=== PATIENT | male | born 1930 | race Caucasian/White ===

== ENCOUNTER 2016-05-05 09:13 | Observation (INO) | payer MEDICARE, OTHER ==
[2016-05-05 10:19] LABS: BASOPHIL % 0.3 % (0.0-0.4); Eosinophil % 1.3 % (0.00-5.0); Granulocytes % 66.9 % (36.0-66.0); Lymphocytes % 23.4 % (24.0-44.0); Mean Cell Volume 99.8 fl (78-100); Mean Corpuscular Hemoglobin 32.5 pg (26-32); Mean Platelet Volume 9.7 fl (6-9.5); Monocytes % 8.1 % (0.0-12.0); Platelet Count 179 K/mm3 (150-450); Red Blood Count 4.55 M/mm3 (4.1-5.6); Red Cell Distribution Width 13.4 % (11.5-14.0); White Blood Count 9.2 K/mm3 (4.0-10.5)
[2016-05-05 10:33] LABS: INR 1.08 (0.8-3.0); PROTIME 12.1 SECONDS (8.83-12.87)
[2016-05-05 10:36] LABS: PTT 30.2 SECONDS (24.1-36.1)
[2016-05-05 10:41] LABS: ALBUMIN 3.8 g/dL (3.4-5.0); ANION GAP 14.1 MEQ/L (5-15); BILIRUBIN,TOTAL 0.6 mg/dL (0.2-1.0); Carbon Dioxide 26.7 mEq/L (21-32); Potassium 4.1 mEq/L (3.5-5.1); Total Protein 7.5 gm/dL (6.4-8.2)
[2016-05-05] MEDS ORDERED: TYLENOL 325 MG PO PRN (12:23)
[2016-05-05] MEDS ORDERED: Zofran 4 MG/2 ML VIAL IV PRN (12:25)
[2016-05-05] MEDS ORDERED: Sodium Chloride 0.9% 500 ML 500 ML IV SCH ×2 (12:30→14:30)
[2016-05-05] MEDS ORDERED: MORPHINE SULFATE 2 MG INJ IV PRN (12:37)
--- NOTE | 2016-05-05 12:47 | HP ---
HISTORY OF PRESENT ILLNESS: This is an 85 year-old man who presented to see a nurse practitioner Katerine Toribio this morning and her nurse practitioner student. He reports he used to see Dr. Cristy Armendariz but there was no record here for over 10 years with him being seen. He stated that last night around 1700 hours he started having bright red blood from his rectum. He said it started after he went outside having some posts delivered to his house. He felt like he had pass gas and then felt like he had a bowel movement in his pants but it was actually the bright red blood. He has no history of this happening before. It happened several times after this. He denies any rectal pain. No itching or burning. No history of hemorrhoids. He has never had a colonoscopy or any scan for colon cancer. His father of colon cancer when he was 70. The patient reported that he felt a little shaky in the clinic and the nurse practitioner said when she tried to get him up on the table he seemed unsteady. In the clinic when I did a rectal exam, he had bright red blood on the glove, no stool. His prostate felt enlarged. No large rectal masses. I did not palpate any internal hemorrhoids. I did not see any external hemorrhoids. The patient was admitted for further evaluation and treatment. REVIEW OF SYSTEMS: He has had no dysuria, no cough, and no rhinorrhea. He has had history of ear infection. Denies headache. He has had no lower extremity edema. No rashes. No shortness of breath. No chest pain. No abdominal pain. No fevers. He notes that he had a bulging in his right groin area where previous hernia was. PAST MEDICAL HISTORY: None. PAST SURGICAL HISTORY: Hernia on right side eight years ago that he thinks Dr. Smith did. MEDICATIONS: He only takes some vitamin supplements. Please see the medication reconciliation list for those. ALLERGIES: NKDA. SOCIAL HISTORY: He is and lives with his . He denies any tobacco or alcohol use. FAMILY HISTORY: His mother around 71 from a stroke. His father at age 70 from colon cancer. PHYSICAL EXAMINATION: VITAL SIGNS: Temperature current 97.4F, temperature max 97.4F, heart rate 80, respiratory rate 18, blood pressure 149/79. Oxygen saturation 94% on room air. GENERAL: The patient is a pleasant talkative man lying in bed in no acute distress. CVS: He has a regular rate and rhythm. No murmurs, gallops or rubs. CHEST: Clear to auscultation bilaterally. No crackles or wheezes. ABDOMEN: Soft, nontender, nondistended with normal bowel sounds. EXTREMITIES: No clubbing, cyanosis or edema. SKIN: Warm, dry and intact. RECTAL: Exam which was done in the office with the nurse practitioner student present revealed an enlarged prostate, no distinct nodules, no rectal masses palpated. Normal sphincter tone. Bright red blood on the glove. No internal hemorrhoids palpated. No external hemorrhoids visualized. LABORATORY DATA AND TESTS: His CBC revealed a white blood cell count 9.2, hemoglobin 14.8, PLT 179,000. International normalized ratio 1.09. CMP all within normal limits. ASSESSMENT AND PLAN: 1) Hematochezia. The patient is currently NPO. IV fluids have been ordered. Will recheck his hemoglobin in six hours and ask the general surgeon to see him for consideration of a scope before he is discharged home. 2) Right lower abdominal pain this is almost in the inguinal area. Again, the surgeon will be seeing him to see if they think this is a hernia that has reoccurred or not.
[2016-05-05] MEDS: Dextrose 5% -0.45 NaCl 1000 ML 1,000 ML IV SCH (13:47)
[2016-05-05] MEDS: Calcium 500MG W/Vit D Tablet PO SCH (16:43)
[2016-05-05] MEDS: Vitamin C 500 MG PO SCH (16:44)
[2016-05-05] MEDS: VITAMIN D PO SCH (16:44)
[2016-05-05] MEDS: Vitamin B-12 500 MCG PO SCH (16:44)
[2016-05-05] MEDS: Vitamin E 400 UNIT SOFTGEL PO SCH (16:44)
[2016-05-05] MEDS: THERAGRAN MULTIVITAMIN PO SCH (16:44)
[2016-05-05] MEDS ORDERED: Golytely Solution 4000 ML PO ONE (18:45)
[2016-05-06] MEDS: Dextrose 5% -0.45 NaCl 1000 ML 1,000 ML IV SCH (00:05)
[2016-05-06 05:53] LABS: BASOPHIL % 0.6 % (0.0-0.4); Eosinophil % 4.3 % (0.00-5.0); Granulocytes % 46.2 % (36.0-66.0); Lymphocytes % 36.9 % (24.0-44.0); Mean Cell Volume 100.9 fl (78-100); Mean Platelet Volume 10.1 fl (6-9.5); Platelet Count 159 K/mm3 (150-450); Red Cell Distribution Width 13.2 % (11.5-14.0); White Blood Count 5.4 K/mm3 (4.0-10.5)
[2016-05-06 05:56] LABS: Mean Corpuscular Hemoglobin 32.2 pg (26-32)
[2016-05-06 06:06] LABS: ANION GAP 12.6 MEQ/L (5-15); BLOOD UREA NITROGEN 15 mg/dL (9-20); CHLORIDE 108 mEq/L (98-107); Carbon Dioxide 26.2 mEq/L (21-32); Glucose 102 MG/DL (70-110); Potassium 3.6 mEq/L (3.5-5.1); SODIUM 143 mEq/L (136-145)
[2016-05-06] MEDS ORDERED: DEMEROL 50 MG SDV IV ONE (08:00)
--- NOTE | 2016-05-06 08:22 | PCM.NOTE ---
Date and Time: 05/06/16816 Subjective Assessment: Patient denies any problems. He has been prepped for a colonoscopy today. He states his right lower abdominal pain has resolved. - Review of Systems Constitutional: No Symptoms Eyes: No Symptoms Ears, Nose, & Throat: No Symptoms Respiratory: No Symptoms Cardiac: No Symptoms Abdominal/Gastrointestinal: Hematochezia Genitourinary Symptoms: No Symptoms Musculoskeletal: No Symptoms Skin: No Symptoms Neurological: No Symptoms Objective Exam General Appearance: no apparent distress, alert Neurologic Exam: alert, cooperative, normal mood/affect Skin Exam: normal color, warm, dry, No rash Respiratory Exam: normal breath sounds, lungs clear, airway intact, No crackles/ rales, No rhonchi, No wheezing Cardiovascular Exam: regular rate/rhythm, normal heart sounds, No murmur, No friction rub, No gallop Gastrointestinal/Abdomen Exam: soft, normal bowel sounds, No tenderness, No distention, No mass Extremity Exam: other (no c/c/e) OBJECTIVE DATA Vital Signs: Vital Signs - 24 hr Temp Pulse Resp BP Pulse Ox 05/06/16 07:00 97.6 F 79 16 114/55 91 L 05/06/16 03:00 97.5 F 91 H 18 119/64 96 05/05/16 23:50 97.9 F 84 16 133/69 94 L 05/05/16 19:46 97.5 F 73 18 118/65 94 L 05/05/16 16:42 97.8 F 74 20 111/64 95 05/05/16 12:47 97.4 F 80 18 149/79 94 L 05/05/16 10:03 97.4 F 80 18 149/79 94 L 05/05/16 09:58 97.4 F 80 18 149/79 94 L Pain Assessment - Last Documented Pain Intensity 4 Pain Scale Used 0-10 Pain Scale Intake and Output: Intake & Output 05/04/16 05/05/16 05/06/16 05/07/16 06:59 06:59 06:59 06:59 Intake Total 4885 Output Total 6725 Balance -1840 Weight 77.02 kg 77.02 kg Lab Results: Lab Results-Last 24 Hours 05/05/16 05/05/16 05/05/16 Range/Units 10:00 10:00 10:00 WBC (4.0-10.5) K/mm3 RBC (4.1-5.6) M/mm3 Hgb (12.5-18.0) gm/dl Hct (42-50) % MCV (78-100) fl MCH (26-32) pg MCHC (32-36) g/dl RDW (11.5-14.0) % Plt Count (150-450) K/mm3 MPV (6-9.5) fl Gran % (36.0-66.0) % Lymphocytes % (24.0-44.0) % Monocytes % (0.0-12.0) % Eosinophils % (0.00-5.0) % Basophils % (0.0-0.4) % Basophils # (0-0.4) INR 1.08 (0.8-3.0) PTT 30.2 (24.1-36.1) SECONDS Sodium 141 (136-145) mEq/L Potassium 4.1 (3.5-5.1) mEq/L Chloride 104 (98-107) mEq/L Carbon Dioxide 26.7 (21-32) mEq/L Anion Gap 14.1 (5-15) MEQ/L BUN 20 (9-20) mg/dL Creatinine 1.26 (0.55-1.30) mg/dl Estimated GFR 58 ML/MIN Glucose 102 (70-110) MG/DL Calcium 9.1 (8.5-10.1) mg/dL Total Bilirubin 0.6 (0.2-1.0) mg/dL AST 22 (15-37) U/L ALT 19 (12-78) U/L Alkaline Phosphatase 47 (46-116) U/L Serum Total Protein 7.5 (6.4-8.2) gm/dL Albumin 3.8 (3.4-5.0) g/dL ABO Group A Rh Factor POSITIVE Antibody Screen NEGATIVE (NEGATIVE) Crossmatch COMPATIBLE (COMPATIBLE) 05/05/16 05/05/16 05/05/16 Range/Units 10:00 10:15 16:20 WBC 9.2 (4.0-10.5) K/mm3 RBC 4.55 (4.1-5.6) M/mm3 Hgb 14.8 12.2 L (12.5-18.0) gm/dl Hct 45.4 38.1 L (42-50) % MCV 99.8 (78-100) fl MCH 32.5 H (26-32) pg MCHC 32.6 (32-36) g/dl RDW 13.4 (11.5-14.0) % Plt Count 179 (150-450) K/mm3 MPV 9.7 H (6-9.5) fl Gran % 66.9 H (36.0-66.0) % Lymphocytes % 23.4 L (24.0-44.0) % Monocytes % 8.1 (0.0-12.0) % Eosinophils % 1.3 (0.00-5.0) % Basophils % 0.3 (0.0-0.4) % Basophils # 0.03 (0-0.4) INR (0.8-3.0) PTT (24.1-36.1) SECONDS Sodium (136-145) mEq/L Potassium (3.5-5.1) mEq/L Chloride (98-107) mEq/L Carbon Dioxide (21-32) mEq/L Anion Gap (5-15) MEQ/L BUN (9-20) mg/dL Creatinine (0.55-1.30) mg/dl Estimated GFR ML/MIN Glucose (70-110) MG/DL Calcium (8.5-10.1) mg/dL Total Bilirubin (0.2-1.0) mg/dL AST (15-37) U/L ALT (12-78) U/L Alkaline Phosphatase (46-116) U/L Serum Total Protein (6.4-8.2) gm/dL Albumin (3.4-5.0) g/dL ABO Group Rh Factor Antibody Screen (NEGATIVE) Crossmatch COMPATIBLE (COMPATIBLE) 05/06/16 05/06/16 Range/Units 05:25 05:25 WBC 5.4 (4.0-10.5) K/mm3 RBC 3.50 L (4.1-5.6) M/mm3 Hgb 11.3 L (12.5-18.0) gm/dl Hct 35.3 L (42-50) % MCV 100.9 H (78-100) fl MCH 32.2 H (26-32) pg MCHC 32.0 (32-36) g/dl RDW 13.2 (11.5-14.0) % Plt Count 159 (150-450) K/mm3 MPV 10.1 H (6-9.5) fl Gran % 46.2 (36.0-66.0) % Lymphocytes % 36.9 (24.0-44.0) % Monocytes % 12.0 (0.0-12.0) % Eosinophils % 4.3 (0.00-5.0) % Basophils % 0.6 (0.0-0.4) % Basophils # 0.03 (0-0.4) INR (0.8-3.0) PTT (24.1-36.1) SECONDS Sodium 143 (136-145) mEq/L Potassium 3.6 (3.5-5.1) mEq/L Chloride 108 H (98-107) mEq/L Carbon Dioxide 26.2 (21-32) mEq/L Anion Gap 12.6 (5-15) MEQ/L BUN 15 (9-20) mg/dL Creatinine 1.10 (0.55-1.30) mg/dl Estimated GFR > 60 ML/MIN Glucose 102 (70-110) MG/DL Calcium 7.8 L (8.5-10.1) mg/dL Total Bilirubin (0.2-1.0) mg/dL AST (15-37) U/L ALT (12-78) U/L Alkaline Phosphatase (46-116) U/L Serum Total Protein (6.4-8.2) gm/dL Albumin (3.4-5.0) g/dL ABO Group Rh Factor Antibody Screen (NEGATIVE) Crossmatch (COMPATIBLE) Assessment/Plan (1) Hematochezia Current Visit: Yes Status: Acute Assessment & Plan: Colonoscopy planned for today. Hgb has dropped by about 3 points but he started out with a hemoglobin of 14 so no need to transfuse at this time as his vital signs are stable. Continue with IV fluids and close monitoring. Will recheck a CBC in the am. Code(s): K92.1 - MELENA
[2016-05-06] MEDS ORDERED: NON-FORMULARY ITEM (Ascorbate Calcium [Vitamin C] 500 MG) PO SCH (10:00)
[2016-05-06] MEDS ORDERED: NON-FORMULARY ITEM (Multivitamin W-Minerals/Lutein [Centrum Silver Tablet] 1 EACH) PO SCH (10:00)
[2016-05-06] MEDS ORDERED: [UNRECOGNIZED DRUG - REMARK] PO SCH (10:00)
[2016-05-06] MEDS ORDERED: NON-FORMULARY ITEM (Calcium Carbonate [Calcium] 600 MG) PO SCH (10:00)
[2016-05-06] MEDS ORDERED: CHOLECALCIFEROL 800 UNIT PO SCH (10:00)
[2016-05-06] MEDS: Calcium 500MG W/Vit D Tablet PO SCH (11:44)
[2016-05-06] MEDS: MEDICATION INTERVENTION MC SCH (11:44)
[2016-05-06] MEDS: THERAGRAN MULTIVITAMIN PO SCH (11:44)
[2016-05-06] MEDS: Vitamin B-12 500 MCG PO SCH (11:45)
[2016-05-06] MEDS: VITAMIN D PO SCH (11:45)
[2016-05-06] MEDS: Vitamin C 500 MG PO SCH (11:45)
[2016-05-06] MEDS: Vitamin E 400 UNIT SOFTGEL PO SCH (11:46)
[2016-05-06] MEDS: Sodium Chloride 0.9% 1000 ML 1,000 ML IV SCH ×2 (11:50→18:46)
[2016-05-07] MEDS: Sodium Chloride 0.9% 1000 ML 1,000 ML IV SCH (05:00)
[2016-05-07 05:41] LABS: BASOPHIL % 0.3 % (0.0-0.4); Granulocytes % 58.4 % (36.0-66.0); Lymphocytes % 28.5 % (24.0-44.0); Mean Cell Volume 100.9 fl (78-100); Mean Corpuscular Hemoglobin 32.2 pg (26-32); Mean Platelet Volume 9.7 fl (6-9.5); Monocytes % 8.8 % (0.0-12.0); Platelet Count 157 K/mm3 (150-450); Red Blood Count 3.32 M/mm3 (4.1-5.6); Red Cell Distribution Width 13.3 % (11.5-14.0)
[2016-05-07 06:01] LABS: ANION GAP 10.4 MEQ/L (5-15); BLOOD UREA NITROGEN 12 mg/dL (9-20); CHLORIDE 109 mEq/L (98-107); Carbon Dioxide 26.1 mEq/L (21-32); Glucose 83 MG/DL (70-110); Potassium 3.8 mEq/L (3.5-5.1); SODIUM 142 mEq/L (136-145)
[2016-05-07 07:41] VITALS: BP 132/62; PULSE 84; O2SAT 94
[2016-05-07] MEDS ORDERED: VERSED 5 MG/5 ML IV ONE (08:00)
--- NOTE | 2016-05-07 08:18 | OP ---
SURGERY DATE: 05/06/16 SURGERY TIME: 1240 PREOPERATIVE DIAGNOSIS: 1. RECTAL BLEEDING. POSTOPERATIVE DIAGNOSIS: 1. RECENT RECTOSIGMOID BLEEDING LIMITED TO THE DISTAL SIGMOID DIVERTICULAR AREA. PROCEDURE: 1. Colonoscopy complete to cecum. FINDINGS: 1. Blood only in the distal sigmoid and upper rectum. 2. Moderate to severe sigmoid diverticulosis. SURGEON: Gallo Smith M.D. ANESTHESIA: IV sedation. COMPLICATIONS: None. CONDITION: Stable. INDICATION: Patient requiring evaluation. Had rectal bleeding. OPERATIVE PROCEDURE: Taken to endoscopy. Left lateral decubitus position. After suitable sedation obtained, scope introduced. Scope advanced to the cecum. On circumferential withdrawal, no mucosal lesions were noted. There was moderate to severe diverticulosis of the sigmoid and in the distal 6", there was old blood and blood staining on the wall and there was a little bit of this in the very upper rectum. It certainly seems like this was a diverticular bleed and this was discussed with the family in the waiting room.
[2016-05-07] MEDS: THERAGRAN MULTIVITAMIN PO SCH (08:31)
[2016-05-07] MEDS: VITAMIN D PO SCH (08:31)
[2016-05-07] MEDS: Calcium 500MG W/Vit D Tablet PO SCH (08:31)
--- NOTE | 2016-05-07 08:31 | PCM.DCORD ---
- Discharge Discharge Date: 05/07/16 Disposition: Home, Self-Care Condition: Fair Prescriptions: New Ferrous Sulfate 325 mg [Feosol 325 mg] 325 mg PO DAILY #30 tablet Continue Vitamin E 400 unit PO DAILY Cyanocobalamin 500 Mcg [Vitamin B-12 500 MCG] 500 mcg PO DAILY Ascorbate Calcium [Vitamin C] 500 mg PO DAILY Multivitamin W-Minerals/Lutein [Centrum Silver Tablet] 1 each PO DAILY Glucosam/Chond/Hyalu/Cf Borate [Move Free Joint Health Tablet] 1 each PO DAILY Calcium Carbonate [Calcium] 600 mg PO DAILY Cholecalciferol (Vitamin D3) [Vitamin D3] 800 unit PO DAILY Additional Instructions: Avoid eating nuts or fruits with small seeds. Call clinic or return to ER if bleeding starts again. Follow up with: LAURA SANABRIA [Primary Care Provider] - [address]QUE [address]REETER [ACTIVE STAFF] - 1 Week Forms: Patient Portal Information
[2016-05-07] MEDS: Vitamin B-12 500 MCG PO SCH (08:32)
[2016-05-07] MEDS: Vitamin C 500 MG PO SCH (08:32)
[2016-05-07] MEDS: MEDICATION INTERVENTION MC SCH (08:35)
[2016-05-07] MEDS: Vitamin E 400 UNIT SOFTGEL PO SCH (08:40)
--- NOTE | 2016-05-07 12:05 | DS ---
DISCHARGE DIAGNOSIS: 1. HEMATOCHEZIA. 2. SEVERE DIVERTICULOSIS WITH SEVERE RECENT RECTAL BLEEDING. 3. ANEMIA. DISCHARGE PHYSICAL EXAM: VITALS: Temperature current 97.8, temperature maximum 97.8, heart rate 54-85, respiratory rate 16-17, O2 saturation 92-94% on room air, BP 121-132/60-62. GENERAL: The patient is a pleasant, talkative man sitting up in bed in no acute distress. His is at the bedside. CVS: His heart has a regular rate and rhythm. No murmurs, gallops, or rubs are appreciated. CHEST: Clear to auscultation bilaterally. No crackles or wheezes. ABDOMEN: Soft, nontender, nondistended with normal bowel sounds. EXTREMITIES: No clubbing, cyanosis, or edema. SKIN: Warm, dry, and intact. HOSPITAL COURSE: 1. Hematochezia. He was admitted to the hospital with significant bright red blood from his rectum. He was prepped for a colonoscopy which was done yesterday by Dr. Smith. According to the post-op diagnosis on his endoscopy procedure report, it states there is severe diverticulosis with severe recent bleeding. The actual procedure note has not been dictated yet. The patient reports that the bleeding has completely stopped. He was instructed to avoid nuts and small seeds or anything that could be small and heard that could get in those pockets to cause inflammation or irritation. The patient hasn't had any fevers. He has had 3 meals without any problems. No nausea or vomiting, so will discharge him to home to follow-up with myself and the surgeon. 2. Severe sigmoid diverticulosis with severe rectal bleeding. The plan is as above for the hematochezia. 3. Anemia. His Hgb dropped from 14.8 to 10.7 during his hospitalization. I am going to check some iron studies and vitamin B12 levels to be drawn before he leaves and start him on ferrous sulfate 325 mg PO daily. We may need to adjust these based on the results of the blood work being drawn this morning. DISPOSITION: The patient was discharged home in fair condition. FOLLOW-UP: He is to follow-up with myself in 1 week and the surgeon in 1 week. DISCHARGE MEDICATIONS: He may resume all his home vitamins and also start ferrous sulfate 325 mg PO daily.
== END 2016-05-07 09:25 | disposition home or self-care (01) ==
LOC: MED SURG 09:43
PROVIDERS: ADMIT Internal Medicine; ATTEND Internal Medicine
PROC: 0DJD8ZZ Inspection of Lower Intestinal Tract, Via Natural or Artificial Opening Endoscopic (ICD-10-PCS; principal; 2016-05-06)
DX: K92.1 Melena (principal); K57.31 Diverticulosis of large intestine without perforation or abscess with bleeding; K62.5 Hemorrhage of anus and rectum; D64.9 Anemia, unspecified; Z80.0 Family history of malignant neoplasm of digestive organs; Z79.899 Other long term (current) drug therapy
CPT/HCPCS: 36415; 80048; 80053; 82607; 82728; 83540; 83550; 83921; 85014; 85018; 85025; 85610; 85730; 86850; 86900; 86901; 86922; 93005; G0378; J2175; J2250

== ENCOUNTER 2016-11-17 14:42 | Emergency (ER) | payer MEDICARE, OTHER ==
--- NOTE | 2016-11-17 15:15 | ERPHSYRPT ---
- History of Present Illness Time Seen by Provider: 11/17/16 15:06 Historian: patient, family Exam Limitations: no limitations Patient Subjective Stated Complaint: "I have a lump in my lower abdomen on the left side and it hurts" Triage Nursing Assessment: Pt alert and oriented X 3, skin pwd. Pt ambulates with an upright gait. Pt able to speak in full sentences. Golf ball size lump in pt rt lower qudrant just above groin. Physician History: Patient is an 86-year-old male with his complaining of a sudden onset of a bulge in his left groin and pain. This occurred about one hour ago. He had a right inguinal hernia repaired several years ago and knew that this was also another hernia. The surgeon told him at the time of the repair of the right hernia that he also had a small hernia present on the left. The patient has been lifting items over the weekend that none today. He denies any problems with bowels or bladder. He takes no prescription medicines. His past medical history is significant for right inguinal hernia repair. Timing/Duration: hour(s) (1) Activities at Onset: none Quality: aching, sharpness Abdominal Pain Onset Location: other (left groin) Pain Radiation: no radiation Severity of Pain-Max: moderate Severity of Pain-Current: moderate Modifying Factors: Improves With: nothing Associated Symptoms: denies symptoms Previous symptoms: same symptoms as today Allergies/Adverse Reactions: No Known Drug Allergies Allergy (Verified 11/17/16 14:56) Home Medications: Ascorbate Calcium [Vitamin C] 500 mg PO DAILY 05/05/16 [History] Calcium Carbonate [Calcium] 600 mg PO DAILY 05/05/16 [History] Glucosam/Chond/Hyalu/Cf Borate [Move Free Joint Health Tablet] 1 each PO DAILY 05/05/16 [History] Multivitamin W-Minerals/Lutein [Centrum Silver Tablet] 1 each PO DAILY 05/05/16 [History] Vitamin E 400 unit PO DAILY 05/05/16 [History] Hx Tetanus, Diphtheria Vaccination/Date Given: Yes Hx Influenza Vaccination/Date Given: Yes Hx Pneumococcal Vaccination/Date Given: Yes Immunizations Up to Date: Yes - Review of Systems Constitutional: No Fever, No Chills Eyes: No Symptoms Ears, Nose, & Throat: No Symptoms Respiratory: No Cough, No Dyspnea Cardiac: No Chest Pain, No Edema, No Syncope Abdominal/Gastrointestinal: Abdominal Pain Genitourinary Symptoms: No Dysuria Musculoskeletal: No Back Pain, No Neck Pain Skin: No Rash Neurological: No Dizziness, No Focal Weakness, No Sensory Changes Psychological: No Symptoms Endocrine: No Symptoms Hematologic/Lymphatic: No Symptoms Immunological/Allergic: No Symptoms All Other Systems: Reviewed and Negative - Past Medical History Pertinent Past Medical History: Yes Neurological History: No Pertinent History ENT History: No Pertinent History Cardiac History: No Pertinent History Respiratory History: No Pertinent History Endocrine Medical History: No Pertinent History Musculoskeletal History: No Pertinent History GI Medical History: Hernia History: No Pertinent History Psycho-Social History: No Pertinent History Male Reproductive Disorders: No Pertinent History - Past Surgical History Past Surgical History: Yes Neuro Surgical History: No Pertinent History Cardiac: No Pertinent History Respiratory: No Pertinent History Gastrointestinal: Hernia Repair Genitourinary: No Pertinent History Musculoskeletal: No Pertinent History Male Surgical History: No Pertinent History - Social History Smoking Status: Never smoker Exposure to second hand smoke: No Drug Use: none Patient Lives Alone: No - Nursing Vital Signs Nursing Vital Signs: Initial Vital Signs Temperature 97.6 F 11/17/16 14:47 Pulse Rate 78 11/17/16 14:47 Respiratory Rate 16 11/17/16 14:47 Blood Pressure 183/102 11/17/16 14:47 O2 Sat by Pulse Oximetry 96 11/17/16 14:47 Pain Scale Pain Intensity 7 - Physical Exam General Appearance: mild distress Eye Exam: PERRL/EOMI, eyes nml inspection Ears, Nose, Throat Exam: normal ENT inspection, pharynx normal, moist mucous membranes Neck Exam: normal inspection, non-tender, supple, full range of motion Respiratory Exam: normal breath sounds, lungs clear, No respiratory distress Cardiovascular Exam: regular rate/rhythm, normal heart sounds Gastrointestinal/Abdomen Exam: hernia (There is a palpable tender soft tissue mass approximately the size of a small ping-pong ball in the left inguinal canal. This soft tissue mass was easily reduced.) Male Genitalia Exam: hernia Rectal Exam: not done Back Exam: normal inspection, normal range of motion, No CVA tenderness, No vertebral tenderness Extremity Exam: normal inspection, normal range of motion, pelvis stable Neurologic Exam: alert, oriented x 3, cooperative, normal mood/affect, nml cerebellar function, sensation nml, No motor deficits Skin Exam: normal color, warm, dry SpO2 Interpretation: normal SpO2: 96 Oxygen Delivery: Room Air - Progress Progress: improved Progress Note: 11/17/16 15:48 The patient had a left inguinal hernia that was successfully reduced. The patient is feeling much better now. Counseled pt/family regarding: diagnosis, need for follow-up - Departure Time of Disposition: 15:48 Departure Disposition: Home Clinical Impression: Reducible left inguinal hernia Condition: Stable Critical Care Time: No Referrals: LAURA SANABRIA [Primary Care Provider] - Additional Instructions: You had a left inguinal hernia that was reduced in the ER. You should wear a hernia truss as needed. Follow-up with the surgeon for repair. Return to the ER if severe pain occurs in the area of the hernia.
[2016-11-17 15:58] VITALS: BP 148/82; PULSE 82; O2SAT 97
== END 2016-11-17 16:09 | disposition home or self-care (01) ==
LOC: ED 14:42
DX: K40.90 Unilateral inguinal hernia, without obstruction or gangrene, not specified as recurrent (principal)
CPT/HCPCS: 99282

== ENCOUNTER 2018-01-21 04:02 | Observation (INO) | payer MEDICARE, OTHER ==
--- NOTE | 2018-01-21 04:50 | ERPHSYRPT ---
- History of Present Illness Time Seen by Provider: 01/21/18 04:44 Historian: patient Exam Limitations: no limitations Patient Subjective Stated Complaint: pt c/o left inguinal pain and swelling d/t possible hernia; pt states he has a h/o left inguinal hernia a couple years ago and earlier this pm he tripped on a foot stool at home and shortly afterwards started having pain and swelling in his left groin. Triage Nursing Assessment: pt a&o x3; skin p, w, & d; swelling noted to left groin; no other distress at this time; ambulated to room per self. Physician History: The patient is an 87-year-old male who stepped down off of the step stool about midnight and had of sudden feeling that her hernia popped out on his left groin. He's had some pain. There is no bulge there. This happened a few years ago and he had it reduced without incident. He denies fever and chills. He denies nausea or vomiting. Timing/Duration: hour(s) (4), constant, sudden Activities at Onset: activity Quality: aching Abdominal Pain Onset Location: LLQ Pain Radiation: no radiation Severity of Pain-Max: moderate Severity of Pain-Current: moderate Modifying Factors: Improves With: nothing Associated Symptoms: denies symptoms Previous symptoms: same symptoms as today, no recent treatment Allergies/Adverse Reactions: No Known Drug Allergies Allergy (Verified 01/21/18 04:30) Home Medications: Ascorbate Calcium [Vitamin C] 500 mg PO DAILY 05/05/16 [History] Calcium Carbonate [Calcium] 600 mg PO DAILY 05/05/16 [History] Glucosam/Chond/Hyalu/Cf Borate [Move Free Joint Health Tablet] 1 each PO DAILY 05/05/16 [History] Multivitamin W-Minerals/Lutein [Centrum Silver Tablet] 1 each PO DAILY 05/05/16 [History] Vitamin E 400 unit PO DAILY 05/05/16 [History] Aspirin 81 gm Chew [Baby Aspirin 81 mg Chew] 81 mg PO DAILY 01/21/18 [ History] Cyanocobalamin/Folic Acid [Vitamin U70-Dtger Acid Tablet] 400 mg PO DAILY [History] Hx Tetanus, Diphtheria Vaccination/Date Given: Yes Hx Influenza Vaccination/Date Given: Yes (2016) Hx Pneumococcal Vaccination/Date Given: Yes Immunizations Up to Date: Yes - Review of Systems Constitutional: No Fever, No Chills Eyes: No Symptoms Ears, Nose, & Throat: No Symptoms Respiratory: No Cough, No Dyspnea Cardiac: No Chest Pain, No Edema, No Syncope Abdominal/Gastrointestinal: Abdominal Pain Genitourinary Symptoms: No Dysuria Musculoskeletal: No Back Pain, No Neck Pain Skin: No Rash Neurological: No Dizziness, No Focal Weakness, No Sensory Changes Psychological: No Symptoms Endocrine: No Symptoms Hematologic/Lymphatic: No Symptoms Immunological/Allergic: No Symptoms All Other Systems: Reviewed and Negative - Past Medical History Pertinent Past Medical History: Yes Neurological History: No Pertinent History ENT History: No Pertinent History Cardiac History: No Pertinent History Respiratory History: No Pertinent History Endocrine Medical History: No Pertinent History Musculoskeletal History: No Pertinent History GI Medical History: Hernia History: No Pertinent History Psycho-Social History: No Pertinent History Male Reproductive Disorders: No Pertinent History - Past Surgical History Past Surgical History: Yes Neuro Surgical History: No Pertinent History Cardiac: No Pertinent History Respiratory: No Pertinent History Gastrointestinal: Hernia Repair Genitourinary: No Pertinent History Musculoskeletal: No Pertinent History Male Surgical History: No Pertinent History - Social History Smoking Status: Never smoker Exposure to second hand smoke: No Drug Use: none Patient Lives Alone: No - Nursing Vital Signs Nursing Vital Signs: Initial Vital Signs Temperature 97.3 F 01/21/18 04:20 Pulse Rate 70 01/21/18 04:20 Respiratory Rate 16 01/21/18 04:20 Blood Pressure 193/84 01/21/18 04:20 O2 Sat by Pulse Oximetry 96 01/21/18 04:20 Pain Scale Pain Intensity 4 - Physical Exam General Appearance: no apparent distress, alert Eye Exam: PERRL/EOMI, eyes nml inspection Ears, Nose, Throat Exam: normal ENT inspection, pharynx normal, moist mucous membranes Neck Exam: normal inspection, non-tender, supple, full range of motion Respiratory Exam: normal breath sounds, lungs clear, No respiratory distress Cardiovascular Exam: regular rate/rhythm, normal heart sounds Gastrointestinal/Abdomen Exam: hernia (left inguinal hernia about size of an egg. tenderness. reduced with manipulation.) Male Genitalia Exam: normal genitalia Rectal Exam: not done Back Exam: normal inspection, normal range of motion, No CVA tenderness, No vertebral tenderness Extremity Exam: normal inspection, normal range of motion, pelvis stable Neurologic Exam: alert, oriented x 3, cooperative, normal mood/affect, nml cerebellar function, sensation nml, No motor deficits Skin Exam: normal color, warm, dry SpO2 Interpretation: normal SpO2: 96 Oxygen Delivery: Room Air - CT Exams Abdomen/Pelvis CT Interpretation: Tele-radiologist Report (per Dr Chiang), Other ( inflammatory changes at left inguinal hernia site; short small bowel segment with wall thickening) Ordered Tests: Active Orders 24 hr Category Date Time Status ABDOMEN AND PELVIS W/0 CONTRAS [CT] Stat Exams 01/21/18 05:06 Taken BMP Stat Lab 01/21/18 06:52 Ordered CBC W DIFF Stat Lab 01/21/18 06:52 Ordered Lactic Acid Stat Lab 01/21/18 06:52 Ordered Medication Summary Discontinued Medications Generic Name Dose Route Start Last Admin Trade Name Freq PRN Reason Stop Dose Admin Acetaminophen 975 mg 01/21/18 05:06 01/21/18 05:16 Tylenol 325 Mg PO 01/21/18 05:07 975 mg STAT ONE Administration Acetaminophen Confirm 01/21/18 05:14 Tylenol 325 Mg Administered 01/21/18 05:15 Dose 975 mg .ROUTE .STK-MED ONE - Progress Progress: improved Progress Note: 01/21/18 04:54 Left inguinal hernia was manipulated and reduced. Pt is now feeling better. Pt advised to purchase a hernia truss. Discussed with : Jason Counseled pt/family regarding: diagnosis, need for follow-up, rad results - Departure Time of Disposition: 04:56 Departure Disposition: Observation (per Dr Sanabria) Clinical Impression: Reducible left inguinal hernia Condition: Stable Critical Care Time: No Referrals: LAURA SANABRIA [Primary Care Provider] - Additional Instructions: You had a small left inguinal hernia that was reduced back into place. I recommend that you purchase a hernia truss and wear it. Follow-up with your primary medical doctor on Tuesday. Do not hesitate to return to the ER if the problem reappears.
[2018-01-21] MEDS ORDERED: TYLENOL 325 MG ONE (05:14)
[2018-01-21] MEDS: TYLENOL 325 MG PO ONE (05:16)
[2018-01-21 07:06] LABS: BASOPHIL % 0.2 % (0.0-0.4); Basophil (Absolute #) 0.02 (0-0.4); Eosinophil % 0.2 % (0.00-5.0); Eosinophil (Absolute #) 0.02 (0-0.5); Granulocyte Absolute (ANC) 7.16 (1.4-6.9); Granulocytes % 85.4 % (36.0-66.0); Hematocrit 48.6 % (42-50); Hemoglobin 16.2 gm/dl (12.5-18.0); Lymphocyte (Absolute #) 0.84 (1.0-4.6); Mean Cell Volume 99.6 fl (78-100); Mean Corpuscular Hemoglobin 33.2 pg (26-32); Mean Corpuscular Hgb Concent. 33.3 g/dl (32-36); Mean Platelet Volume 9.8 fl (6-9.5); Monocyte (Absolute #) 0.35 (0.0-1.3); Monocytes % 4.2 % (0.0-12.0); Platelet Count 181 K/mm3 (150-450); Red Blood Count 4.88 M/mm3 (4.1-5.6); White Blood Count 8.4 K/mm3 (4.0-10.5)
[2018-01-21 07:20] LABS: ANION GAP 10.5 MEQ/L (5-15); BLOOD UREA NITROGEN 18 mg/dL (9-20); CHLORIDE 105 mmol/L (98-107); Calcium 9.5 mg/dL (8.4-10.2); Carbon Dioxide 26 mmol/L (22-30); Creatinine 1 0.96 mg/dL (0.66-1.25); Glucose 111 mg/dL (74-106); Potassium 4.1 mmol/L (3.5-5.1); SODIUM 137 mmol/L (137-145)
[2018-01-21] MEDS ORDERED: MORPHINE SULFATE 2 MG INJ IV PRN (07:51)
[2018-01-21] MEDS ORDERED: Zofran 4 MG/2 ML VIAL IV PRN (07:51)
--- NOTE | 2018-01-21 07:54 | XRAY ---
Indication: Left lower quadrant pain. Multiple contiguous axial images obtained through the abdomen and pelvis without contrast as ordered. Comparison: None Lung bases demonstrates mild bibasilar dependent atelectasis/scarring, left greater than right. Also minimal right base calcified pleural plaquing. No infiltrate or effusion. Heart is not enlarged. Small hiatal hernia. Noncontrasted stomach and bowel loops appear nonobstructed. Scattered transverse, descending, and sigmoid diverticulosis without diverticulitis. Previous reported appendectomy. No free fluid/air. Moderate sized fatty left inguinal hernia with minimal stranding. Enlarged prostate gland impresses on the base of the bladder. Remaining liver, gallbladder, pancreas, spleen, adrenal glands, kidneys, ureters, and bladder appear unremarkable for noncontrast exam. Mild aortoiliac calcifications without AAA. Osseous structures intact with mild osteopenia and mild multilevel degenerative spondylosis. Old anterior right 5th rib fracture. Impression: 1. Moderate sized fatty left inguinal hernia with minimal stranding presumed inflammatory. There is report of ER clinician reducing hernia which may or may not be related to the stranding. 2. Colonic diverticulosis without diverticulitis and small hiatal hernia. 3. Enlarged prostate gland. 4. Right lung base calcified pleural plaquing as seen in prior asbestosis exposure. Comment: Preliminary interpretation was made by [facility]. No critical discrepancy. CTDI 18.55
[2018-01-21] MEDS: Sodium Chloride 0.9% 1000 ML 1,000 ML IV SCH ×2 (08:52→14:57)
[2018-01-21] MEDS ORDERED: TYLENOL 325 MG PO PRN (10:15)
[2018-01-21] MEDS ORDERED: Vitamin C 500 MG PO SCH (14:00)
[2018-01-21] MEDS: ECOTRIN 81 MG PO SCH (15:02)
[2018-01-21 17:07] VITALS: BP 151/86; PULSE 88; O2SAT 95
[2018-01-22] MEDS ORDERED: BABY ASPIRIN 81 MG CHEW PO SCH (10:00)
[2018-01-22] MEDS ORDERED: Calcium 500MG W/Vit D Tablet PO SCH (10:00)
[2018-01-22] MEDS ORDERED: NON-FORMULARY ITEM (Calcium Carbonate [Calcium] 600 MG) PO SCH (10:00)
[2018-01-22] MEDS ORDERED: Vitamin E 400 UNIT SOFTGEL PO SCH (10:00)
[2018-01-22] MEDS ORDERED: Vitamin C 500 MG PO SCH (10:00)
[2018-01-22] MEDS ORDERED: NON-FORMULARY ITEM (Multivitamin W-Minerals/Lutein [Centrum Silver Tablet] 1 EACH) PO SCH (10:00)
[2018-01-22] MEDS ORDERED: FOLIC ACID PO SCH (10:00)
[2018-01-22] MEDS ORDERED: NON-FORMULARY ITEM (Ascorbate Calcium [Vitamin C] 500 MG) PO SCH (10:00)
[2018-01-22] MEDS ORDERED: THERAGRAN MULTIVITAMIN PO SCH (10:00)
[2018-01-22] MEDS ORDERED: FOLTX (FOLBIC) PO SCH (10:00)
[2018-01-22] MEDS ORDERED: CYANOCOBALAMIN PO SCH (10:00)
--- NOTE | 2018-01-23 12:57 | CONS ---
CONSULT DATE: 01/21/2018 HISTORY: This 87 year-old male fell yesterday and noticed that after falling his left inguinal hernia had popped out. It has protruded before but never really caused him any problems. He has had a prior right inguinal hernia repair. The hernia was out for about three hours. He went to the emergency department and it was reduced by the emergency department physician. He did have pain at the site until it was reduced. He denies any nausea, vomiting, chest pain, shortness of breath, dysuria, fevers or chills. He had absolutely no pain today. PAST MEDICAL HISTORY: None. PAST SURGICAL HISTORY: Right inguinal hernia repair with Gallo Smith M.D. MEDICATIONS: None. SOCIAL HISTORY: No tobacco. FAMILY HISTORY: Noncontributory. PHYSICAL EXAMINATION: GENERAL: No acute distress. HEENT: Sclera nonicteric. Extraocular movements intact. NECK: Supple. No JVD. CHEST: Nonlabored breathing. ABDOMEN: Soft, nondistended, nontender. Groin exam - Right groin no obvious hernia. Left groin small left inguinal hernia that is not currently stuck out, completely soft and nontender. NEURO: Awake, alert and oriented. PSYCH: Appropriate mood and affect. ASSESSMENT: Left inguinal hernia status post manual reduction. PLAN: The patient recommended left inguinal hernia repair. He does not want it fixed at this time and is recommended to follow up as an outpatient for further discussion of potentially fixing this hernia although he does not think that he will pursue with fixing it unless he has further problems with it.
--- NOTE | 2018-01-23 13:51 | HP ---
HISTORY OF PRESENT ILLNESS: This is an 87 year-old patient of mine who presented to the emergency department earlier this morning. He reports that around 1900 hours last night he lifted his leg up to walk over a small stool and felt just a mild twinge of pain in his left groin area. He reports pain woke him up in the middle of the night and swelling in this area so bad that she woke his up to have her bring him to the hospital. He is usually very healthy. I actually have not seen him for about a year and the last time I saw him was for his annual Medicare Wellness Exam. He reports he had a hernia in this area two to three years ago and had to come to the emergency department to have it reduced. He also has a history of inguinal hernia on the right side that he had surgery on 8 to 10 years ago. The patient reports he does not have too much pain there right now. The emergency room doctor called me and stated because of the amount of pain that the patient had that he wanted to bring him in and I asked the emergency room doctor to contact the general surgeon so that they would be aware of him wanting him to bring him for evaluation for possible hernia repair. When I talked to the emergency room doctor the CT scan reading from the radiologist was not available yet. REVIEW OF SYSTEMS: He denies any chest pain. No shortness of breath. No chest pain with exertion he states. His last normal stool was two days ago. He has not seen any blood in his stool. He has had no diarrhea. No constipation. No nausea or vomiting. PAST MEDICAL HISTORY: The patient has been very healthy, takes no medicine. He has a history of diverticulosis and had a rectal bleed April 2016 and had colonoscopy with Dr. Gallo Smith at that time. PAST SURGICAL HISTORY: Hernia repair 8 to 10 years ago. MEDICATIONS: None. ALLERGIES: NKDA. SOCIAL HISTORY: Denies any tobacco use or alcohol use. He is and lives with his . He reports that he is very active with yard work. FAMILY HISTORY: His mother's history is unknown. His father of colon cancer. PHYSICAL EXAMINATION: VITAL SIGNS: Temperature current 97.9F, temperature max 97.9F, heart rate 70 to 93, respiratory rate 20 to 24, blood pressure 117 to 169 over 77 to 95. Oxygen saturation 94 to 95% on room air. GENERAL: The patient is a pleasant talkative man lying in bed in no acute distress. CVS: He has a regular rate and rhythm. No murmurs, gallops or rubs are appreciated. CHEST: Clear to auscultation bilaterally. No crackles or wheezes. ABDOMEN: Soft, nontender, nondistended with normal bowel sounds. Left groin area I cannot palpate a mass. There is no tenderness to palpation. EXTREMITIES: No clubbing, cyanosis or edema. SKIN: Warm, dry and intact. LABORATORY DATA AND TESTS: CBC within normal limits. BMP within normal limits. Lactic acid was normal. EKG revealed Mobitz type I second degree AV block with bradycardia, heart rate of 50. ASSESSMENT AND PLAN: 1) LEFT INGUINAL HERNIA: The general surgeon was consulted and saw the patient. The nursing staff reports the patient does not want any surgery. 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 Berman to see the patient. The patient does have history of first degree AV block. He appears to be asymptomatic. If the patient is cleared by Dr. Berman will plan to most likely discharge home today to follow up as an outpatient.
--- NOTE | 2018-01-23 14:34 | CONS ---
CONSULT DATE: 01/21/2018 BRIEF HISTORY: This is an 87 year-old male who was seen because of abnormal EKG. The patient was primarily admitted because of strangulated hernia which was successfully reduced. An EKG was performed and showed Wenckebach rhythm. From the cardiac standpoint the patient has never had any cardiac related symptoms in the past particularly no history of myocardial infarction or heart failure. He denies any syncopal attacks, lightheadedness or dizzy spells. He has been a fairly active individual. No paroxysmal nocturnal dyspnea. No orthopnea. No peripheral edema. CARDIAC RISK FACTORS: Negative for diabetes. No hypertension. He does not smoke. No known hyperlipidemia. REVIEW OF SYSTEMS: FAMILY SUPPORT WORKER: No history of stroke. No seizures. No chronic headache. RESPIRATORY: No chronic cough or hemoptysis. GI: He has history of rectal bleeding. He had colonoscopy and no records of the results. : Negative for dysuria or hematuria. PERIPHERAL VASCULAR: No history of DVT or claudication. CURRENT MEDICATIONS: Vitamin C, aspirin, calcium, vitamin B12, multivitamin, vitamin E. PAST SURGICAL HISTORY: Included colonoscopy. SOCIAL HISTORY: He is . He used to work with concrete materials. There is no significant alcohol intake. PHYSICAL EXAMINATION: His blood pressure is 141/65 with heart rate of 60, respirations about 18. GENERAL: The patient is an elderly male who is alert, very pleasant, who is not in any form of distress. HEENT: Unremarkable. NECK: No significant JVD. No carotid bruit. CHEST: The breath sounds are clear. CARDIAC: Heart tones are normal. There is grade 2/6 early diastolic murmur along the left parasternal border. ABDOMEN: Soft with normal bowel sounds. EXTREMITIES: No significant edema with palpable distal pulses. LAB DATA AND DIAGNOSTIC TESTS: The EKG done on 01/21/2018 showed sinus rhythm with Wenckebach rhythm. 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 Will continue to observe for any symptoms. I would avoid any negative chronotropic agents. From the cardiac standpoint he seems to be asymptomatic with no significant coronary risk factors. I anticipate that the patient will need a hernia surgery we are going to get an echocardiogram to assess left ventricle systolic function, also the etiology of murmur is probably secondary to aortic regurgitation. The patient will be seen in the clinic for follow up.
== END 2018-01-21 17:17 | disposition home or self-care (01) ==
LOC: ED 04:02 → MED SURG 07:46
PROVIDERS: ADMIT Internal Medicine; ATTEND Internal Medicine
DX: K40.91 Unilateral inguinal hernia, without obstruction or gangrene, recurrent (principal); K40.90 Unilateral inguinal hernia, without obstruction or gangrene, not specified as recurrent; I44.1 Atrioventricular block, second degree; Z23 Encounter for immunization
CPT/HCPCS: 36415; 74176; 80048; 83605; 85025; 90662; 93005; 93268; 99285; G0008; A9270-GY; G0378

== ENCOUNTER 2018-02-01 01:56 | Emergency (ER) | payer MEDICARE, OTHER ==
[2018-02-01] MEDS ORDERED: Zofran 4 MG/2 ML VIAL IV ONE (02:16)
[2018-02-01] MEDS ORDERED: MORPHINE SULFATE 4 MG INJ IV ONE (02:16)
--- NOTE | 2018-02-01 02:17 | ERPHSYRPT ---
- History of Present Illness Time Seen by Provider: 02/01/18 02:13 Historian: patient Exam Limitations: no limitations Patient Subjective Stated Complaint: Abdominal pain/Inguinal Hernia out Triage Nursing Assessment: Patient brought back to ED via w/c . Patient states he has an inguinal hernia that has popped out. Patient states he hasn't done anyting to cause it to happen. Patient was told by his doctor to come in to ER if hernia started swelling. Slight swelling noted to inguinal area. Patient states pain is 3/10. Physician History: 87-year-old white male with history of left inguinal hernia who was seen here on January 21, 2018 for the same. Arrives with complaint that he feels like his hernia came out at approximately 10:00 this evening he states he is having swelling and pain in the area he has no vomiting no diarrhea no other symptoms. Past medical history includes diverticulosis, GI bleed, Mobitz 1 block. Past surgical history includes right inguinal hernia repair, Timing/Duration: today (10:00 this evening) Activities at Onset: none Quality: other (aching) Abdominal Pain Onset Location: other (left inguinal region) Pain Radiation: no radiation (we will monitor) Severity of Pain-Max: moderate Severity of Pain-Current: mild Modifying Factors: Improves With: nothing Associated Symptoms: No back, No chest pain, No diaphoresis, No diarrhea, No fever/chills, No fatigue, No headache, No heartburn, No loss of appetite, No nausea, No neck pain, No rash, No shortness of breath, No syncope, No testicular pain, No vomiting, No weakness Previous symptoms: same symptoms as today Allergies/Adverse Reactions: No Known Drug Allergies Allergy (Verified 01/21/18 04:30) Home Medications: Ascorbate Calcium [Vitamin C] 500 mg PO DAILY 05/05/16 [History] Calcium Carbonate [Calcium] 600 mg PO DAILY 05/05/16 [History] Glucosam/Chond/Hyalu/Cf Borate [Move Free Joint Health Tablet] 1 each PO DAILY 05/05/16 [History] Multivitamin W-Minerals/Lutein [Centrum Silver Tablet] 1 each PO DAILY 05/05/16 [History] Vitamin E 400 unit PO DAILY 05/05/16 [History] Aspirin 81 gm Chew [Baby Aspirin 81 mg Chew] 81 mg PO DAILY 01/21/18 [ History] Cyanocobalamin/Folic Acid [Vitamin I67-Agled Acid Tablet] 400 mg PO DAILY [History] Hx Tetanus, Diphtheria Vaccination/Date Given: Yes Hx Influenza Vaccination/Date Given: Yes (2016) Hx Pneumococcal Vaccination/Date Given: Yes Immunizations Up to Date: Yes - Review of Systems Constitutional: No Fever, No Chills Eyes: No Symptoms Ears, Nose, & Throat: No Symptoms Respiratory: No Cough, No Dyspnea Cardiac: No Chest Pain, No Edema, No Syncope Abdominal/Gastrointestinal: Other (pain left inguinal region, swelling left inguinal region) Genitourinary Symptoms: No Dysuria Musculoskeletal: No Back Pain, No Neck Pain Skin: No Symptoms, No Rash Neurological: No Dizziness, No Focal Weakness, No Sensory Changes Psychological: No Symptoms Endocrine: No Symptoms All Other Systems: Reviewed and Negative - Past Medical History Pertinent Past Medical History: Yes Neurological History: No Pertinent History ENT History: No Pertinent History Cardiac History: No Pertinent History Respiratory History: No Pertinent History Endocrine Medical History: No Pertinent History Musculoskeletal History: No Pertinent History GI Medical History: Hernia History: No Pertinent History Psycho-Social History: No Pertinent History Male Reproductive Disorders: No Pertinent History - Past Surgical History Past Surgical History: Yes Neuro Surgical History: No Pertinent History Cardiac: No Pertinent History Respiratory: No Pertinent History Gastrointestinal: Hernia Repair Genitourinary: No Pertinent History Musculoskeletal: No Pertinent History Male Surgical History: No Pertinent History Other Surgical History: COLONOSCOPY - Social History Smoking Status: Never smoker Exposure to second hand smoke: No Drug Use: none Patient Lives Alone: No - Nursing Vital Signs Nursing Vital Signs: Initial Vital Signs Temperature 97.7 F 02/01/18 01:57 Pulse Rate 71 02/01/18 01:57 Respiratory Rate 18 02/01/18 01:57 Blood Pressure 155/92 02/01/18 01:57 O2 Sat by Pulse Oximetry 90 L 02/01/18 01:57 Pain Scale Pain Intensity 0 - Physical Exam General Appearance: mild distress Eye Exam: PERRL/EOMI, eyes nml inspection Ears, Nose, Throat Exam: normal ENT inspection, pharynx normal, moist mucous membranes Neck Exam: normal inspection, non-tender, supple, full range of motion Respiratory Exam: normal breath sounds, lungs clear, No respiratory distress Cardiovascular Exam: regular rate/rhythm, normal heart sounds Gastrointestinal/Abdomen Exam: soft, normal bowel sounds, tenderness (Left inguinal region pain), hernia (Small soft area left inguinal area.) Back Exam: normal inspection, normal range of motion, No CVA tenderness, No vertebral tenderness Extremity Exam: normal inspection (The), normal range of motion, pelvis stable Neurologic Exam: alert, oriented x 3, cooperative, multi operation forming machine setter II-XII nml as tested, normal mood/affect, nml cerebellar function, sensation nml, No motor deficits Skin Exam: normal color, warm, dry SpO2 Interpretation: normal (abdomen a little more fe90%) SpO2: 90 Oxygen Delivery: Room Air Ordered Tests: Active Orders 24 hr Category Date Time Status IV Insertion STAT Care 02/01/18 02:12 Active ABDOMEN AND PELVIS W/0 CONTRAS [CT] Stat Exams 02/01/18 02:41 Taken CBC W DIFF Stat Lab 02/01/18 02:25 Completed CMP Stat Lab 02/01/18 02:25 Completed Medication Summary Discontinued Medications Generic Name Dose Route Start Last Admin Trade Name Freq PRN Reason Stop Dose Admin Morphine Sulfate 4 mg 02/01/18 02:16 02/01/18 02:27 Morphine Sulfate 4 Mg Inj IV 02/01/18 02:17 4 mg STAT ONE Administration Morphine Sulfate Confirm 02/01/18 02:25 Morphine Sulfate 4 Mg Inj Administered 02/01/18 02:26 Dose 4 mg .ROUTE .STK-MED ONE Ondansetron HCl 4 mg 02/01/18 02:16 02/01/18 02:27 Zofran 4 Mg/2 Ml Vial IV 02/01/18 02:17 4 mg STAT ONE Administration Ondansetron HCl Confirm 02/01/18 02:25 Zofran 4 Mg/2 Ml Vial Administered 02/01/18 02:26 Dose 4 mg .ROUTE .STK-MED ONE Lab/Rad Data: Laboratory Result Diagrams 02/01/18 02:25 02/01/18 02:25 Laboratory Results 02/01/18 02/01/18 Range/Units 02:25 02:25 WBC 6.1 (4.0-10.5) K/mm3 RBC 4.77 (4.1-5.6) M/mm3 Hgb 15.7 (12.5-18.0) gm/dl Hct 47.4 (42-50) % MCV 99.4 (78-100) fl MCH 32.9 H (26-32) pg MCHC 33.1 (32-36) g/dl RDW 13.6 (11.5-14.0) % Plt Count 180 (150-450) K/mm3 MPV 10.0 H (6-9.5) fl Gran % 48.7 (36.0-66.0) % Eos # (Auto) 0.19 (0-0.5) Absolute Lymphs (auto) 2.14 (1.0-4.6) Absolute Monos (auto) 0.75 (0.0-1.3) Lymphocytes % 35.2 (24.0-44.0) % Monocytes % 12.3 H (0.0-12.0) % Eosinophils % 3.1 (0.00-5.0) % Basophils % 0.7 (0.0-0.4) % Absolute Granulocytes 2.96 (1.4-6.9) Basophils # 0.04 (0-0.4) Sodium 139 (137-145) mmol/L Potassium 4.1 (3.5-5.1) mmol/L Chloride 105 (98-107) mmol/L Carbon Dioxide 26 (22-30) mmol/L Anion Gap 11.7 (5-15) MEQ/L BUN 21 H (9-20) mg/dL Creatinine 1.16 (0.66-1.25) mg/dL Estimated GFR > 60.0 ML/MIN Glucose 95 (74-106) mg/dL Calcium 9.6 (8.4-10.2) mg/dL Total Bilirubin 0.40 (0.2-1.3) mg/dL AST 28 (17-59) U/L ALT 23 (0-50) U/L Alkaline Phosphatase 48 (38-126) U/L Serum Total Protein 7.1 (6.3-8.2) g/dL Albumin 4.0 (3.5-5.0) g/dL - Progress Progress: improved Progress Note: 02/01/18 04:39 This is a 87-year-old white male who had been seen in this [facility] emergency room on January 21, 2018 with complaint of left lower quadrant pain in the feeling as if he had his hernia repair. Patient had what felt to be a palpable 3 cm hernia which was reduced after patient was given morphine 4 mg and cold packs were placed on the area after initial unsuccessful attempt. Patient stated that his pain began at approximately 10:00 last night. Patient's labs are essentially normal including CBC CMP patient still is tender in the left groin He is told the nurse that he was having some cramps in his legs on the left. CT of the abdomen without contrast read by [facility] radi[facility], impression 1. Left inguinal hernia containing fat. 2. Prostate gland enlargement. 3. Diverticulosis distal colon. 4. A saturation of the wall the stomach and duodenum which could be on the basis of nondistention. 02/01/18 05:[address] Sanabria concerning possible observation on this patient she requested that I discussed this with the surgeons. I contacted he felt that the patient did not need to be admitted secondary to a fat-containing hernia, he also stated that the patient could contact Dr. Sohan Smith at the [place] office this morning and try to get into see him today. Patient does have an appointment with Gallo Smith on the eighth but he doesn't feel like he can wait until then to get this fixed. Patient is actually stating he feels better he no longer has abdominal pain. Will plan to discharge patient. - Departure Time of Disposition: 05:03 Departure Disposition: Home Clinical Impression: Left groin pain, Left inguinal hernia Condition: Fair Critical Care Time: No Referrals: LAURA SANABRIA [Primary Care Provider] - Additional Instructions: Return home. Avoid abdominal straining. Wear your truss, Contact Dr. Sohan Smith's office today and [place] and arrange follow-up appointment. Return for acute distress or for severe symptoms.
[2018-02-01] MEDS ORDERED: Zofran 4 MG/2 ML VIAL ONE (02:25)
[2018-02-01] MEDS ORDERED: MORPHINE SULFATE 4 MG INJ ONE (02:25)
[2018-02-01 02:27] LABS: BASOPHIL % 0.7 % (0.0-0.4); Basophil (Absolute #) 0.04 (0-0.4); Eosinophil % 3.1 % (0.00-5.0); Eosinophil (Absolute #) 0.19 (0-0.5); Granulocyte Absolute (ANC) 2.96 (1.4-6.9); Granulocytes % 48.7 % (36.0-66.0); Hematocrit 47.4 % (42-50); Hemoglobin 15.7 gm/dl (12.5-18.0); Lymphocyte (Absolute #) 2.14 (1.0-4.6); Lymphocytes % 35.2 % (24.0-44.0); Mean Cell Volume 99.4 fl (78-100); Mean Corpuscular Hemoglobin 32.9 pg (26-32); Mean Corpuscular Hgb Concent. 33.1 g/dl (32-36); Monocyte (Absolute #) 0.75 (0.0-1.3); Monocytes % 12.3 % (0.0-12.0); Platelet Count 180 K/mm3 (150-450); Red Blood Count 4.77 M/mm3 (4.1-5.6); Red Cell Distribution Width 13.6 % (11.5-14.0); White Blood Count 6.1 K/mm3 (4.0-10.5)
[2018-02-01 02:43] LABS: ALKALINE PHOSPHATASE 48 U/L (38-126); ANION GAP 11.7 MEQ/L (5-15); BLOOD UREA NITROGEN 21 mg/dL (9-20); CHLORIDE 105 mmol/L (98-107); Calcium 9.6 mg/dL (8.4-10.2); Carbon Dioxide 26 mmol/L (22-30); Creatinine 1 1.16 mg/dL (0.66-1.25); Glucose 95 mg/dL (74-106); Potassium 4.1 mmol/L (3.5-5.1); SGOT/AST 28 U/L (17-59); SGPT/ALT 23 U/L (0-50); SODIUM 139 mmol/L (137-145); Total Protein 7.1 g/dL (6.3-8.2)
[2018-02-01 05:58] VITALS: BP 139/69; PULSE 78; O2SAT 94
--- NOTE | 2018-02-01 09:00 | XRAY ---
Indication: Abdomen pain. History left inguinal hernia. Multiple contiguous axial images obtained through the abdomen and pelvis without contrast as ordered. Comparison: January 21, 2018. Lung bases demonstrate stable bibasilar atelectasis/scarring and minimal right base calcified pleural plaquing. Heart is not enlarged. Previous small hiatal hernia not seen presumed sliding-type hernia. Stable fatty left inguinal hernia. No new ventral or inguinal hernias. Noncontrasted stomach and bowel loops nonobstructed. Mild diffuse scattered colonic fecal debris throughout. Also stable colonic diverticulosis without diverticulitis. No free fluid/air. Stable enlarged prostate gland. Remaining liver, gallbladder, pancreas, spleen, adrenal glands, kidneys, ureters, and bladder appear unremarkable for noncontrast exam. Stable mild aortoiliac calcifications without AAA. Osseous structures again demonstrates mild osteopenia, multilevel degenerative spondylosis, and old right 5th rib fracture. Impression: 1. Stable fatty left inguinal hernia. 2. Stable colonic diverticulosis, enlarged prostate gland, and right lung base calcified pleural plaquing. 3. No new or acute intra-abdominal/pelvic abnormalities on this noncontrast exam. Comment: Preliminary interpretation was made by [facility]. No critical discrepancy. CT DI 13.54
== END 2018-02-01 05:56 | disposition home or self-care (01) ==
LOC: ED 01:56
DX: R10.32 Left lower quadrant pain (principal); K40.90 Unilateral inguinal hernia, without obstruction or gangrene, not specified as recurrent; Z79.899 Other long term (current) drug therapy
CPT/HCPCS: 36000; 36415; 74176; 80053; 85025; 96374; 96375; 99284; J2270; J2405

== ENCOUNTER 2018-02-05 15:58 | Observation (INO) | payer MEDICARE, OTHER ==
--- NOTE | 2018-02-05 16:51 | ERPHSYRPT ---
- History of Present Illness Time Seen by Provider: 02/05/18 16:31 Historian: patient, family Exam Limitations: no limitations Patient Subjective Stated Complaint: hernias near the groin keep popping out Triage Nursing Assessment: Pt c/o of hernias on both sides of groin, hx of right side hernia repair 8 years ago but isn't holding any longer, stated that he can't hold it in any longer, bowel sounds heard in all 4 quadrants, BP 171/ 113, rates pain 4/10, pulses normal, denies diffuclty with bowels Physician History: The patient is an 87-year-old male with his complaining of left groin pain today. I saw the patient on 01/21/18 for the same complaint. At that time he had a golf ball sized left inguinal hernia that I successfully reduced. He was placed in the hospital overnight for surgical consultation. A call center director also evaluated him and found him to be a good candidate for surgery. He returned with left groin pain on 02/01/18. He had a CT scan done that showed left a little hernia that was filled with fat. He saw the surgeon 2 days ago to try to schedule an elective hernia repair. The surgeons were to call him tomorrow for the date. His past medical history significant for right inguinal hernia repair. Timing/Duration: today Activities at Onset: none Quality: aching Abdominal Pain Onset Location: LLQ (left groin) Pain Radiation: groin Severity of Pain-Max: mild Severity of Pain-Current: mild Modifying Factors: Improves With: nothing Associated Symptoms: denies symptoms Previous symptoms: same symptoms as today, recently seen, recent hospitalization Allergies/Adverse Reactions: No Known Drug Allergies Allergy (Verified 02/05/18 16:16) Home Medications: Ascorbate Calcium [Vitamin C] 500 mg PO DAILY 05/05/16 [History] Calcium Carbonate [Calcium] 600 mg PO DAILY 05/05/16 [History] Glucosam/Chond/Hyalu/Cf Borate [Move Free Joint Health Tablet] 1 each PO DAILY 05/05/16 [History] Multivitamin W-Minerals/Lutein [Centrum Silver Tablet] 1 each PO DAILY 05/05/16 [History] Vitamin E 400 unit PO DAILY 05/05/16 [History] Aspirin 81 gm Chew [Baby Aspirin 81 mg Chew] 81 mg PO DAILY 01/21/18 [ History] Cyanocobalamin/Folic Acid [Vitamin C39-Tadyb Acid Tablet] 400 mg PO DAILY [History] Hx Tetanus, Diphtheria Vaccination/Date Given: Yes Hx Influenza Vaccination/Date Given: Yes (2016) Hx Pneumococcal Vaccination/Date Given: Yes - Review of Systems Constitutional: No Fever, No Chills Eyes: No Symptoms Ears, Nose, & Throat: No Symptoms Respiratory: No Cough, No Dyspnea Cardiac: No Chest Pain, No Edema, No Syncope Abdominal/Gastrointestinal: Abdominal Pain Genitourinary Symptoms: No Dysuria Musculoskeletal: No Back Pain, No Neck Pain Skin: No Rash Neurological: No Dizziness, No Focal Weakness, No Sensory Changes Psychological: No Symptoms Endocrine: No Symptoms Hematologic/Lymphatic: No Symptoms Immunological/Allergic: No Symptoms All Other Systems: Reviewed and Negative - Past Medical History Pertinent Past Medical History: Yes Neurological History: No Pertinent History ENT History: No Pertinent History Cardiac History: No Pertinent History Respiratory History: No Pertinent History Endocrine Medical History: No Pertinent History Musculoskeletal History: No Pertinent History GI Medical History: Hernia History: No Pertinent History Psycho-Social History: No Pertinent History Male Reproductive Disorders: No Pertinent History - Past Surgical History Past Surgical History: Yes Neuro Surgical History: No Pertinent History Cardiac: No Pertinent History Respiratory: No Pertinent History Gastrointestinal: Hernia Repair Genitourinary: No Pertinent History Musculoskeletal: No Pertinent History Male Surgical History: No Pertinent History Other Surgical History: COLONOSCOPY - Social History Smoking Status: Never smoker Exposure to second hand smoke: No Drug Use: none Patient Lives Alone: No - Nursing Vital Signs Nursing Vital Signs: Initial Vital Signs Temperature 97.5 F 02/05/18 16:00 Pulse Rate 76 02/05/18 16:00 Blood Pressure 171/113 02/05/18 16:00 O2 Sat by Pulse Oximetry 95 02/05/18 16:00 Pain Scale Pain Intensity 4 - Physical Exam General Appearance: no apparent distress, alert Eye Exam: PERRL/EOMI, eyes nml inspection Ears, Nose, Throat Exam: normal ENT inspection, pharynx normal, moist mucous membranes Neck Exam: normal inspection, non-tender, supple, full range of motion Respiratory Exam: normal breath sounds, lungs clear, No respiratory distress Cardiovascular Exam: regular rate/rhythm, normal heart sounds Gastrointestinal/Abdomen Exam: soft, tenderness (mild tenderness in left inguinal area. No bowel felt. only soft fatty tissue.), No mass Rectal Exam: not done Back Exam: normal inspection, normal range of motion, No CVA tenderness, No vertebral tenderness Extremity Exam: normal inspection, normal range of motion, pelvis stable Neurologic Exam: alert, oriented x 3, cooperative, normal mood/affect, nml cerebellar function, sensation nml, No motor deficits Skin Exam: normal color, warm, dry SpO2 Interpretation: normal SpO2: 95 Oxygen Delivery: Room Air Ordered Tests: Active Orders 24 hr Category Date Time Status Clean Catch Urine Specimen STAT Care 02/05/18 16:17 Active IV Insertion STAT Care 02/05/18 16:17 Active - Progress Progress Note: 02/05/18 17:02 I discussed having the patient evaluated for possible surgery with Gallo Smith. He agrees to have Dr. Farmer evaluate the patient in the morning at [facility] for possible surgical repair of his left inguinal hernia. I also discussed with Dr. Paul Louie the plan to which he agrees. Discussed with DrSalvatore: Hang Newman Will see patient in: hospital (observation) Counseled pt/family regarding: diagnosis - Departure Time of Disposition: 17:03 Departure Disposition: Observation (per Dr Glen Louie) Clinical Impression: Left groin pain, Left inguinal hernia Condition: Stable Critical Care Time: No Referrals: LAURA SANABRIA [Primary Care Provider] -
[2018-02-05] MEDS ORDERED: MORPHINE SULFATE 2 MG INJ IV ONE (16:52)
[2018-02-05] MEDS ORDERED: ZOFRAN ODT 4 MG PO ONE (16:52)
[2018-02-05] MEDS ORDERED: MORPHINE SULFATE 2 MG INJ ONE (16:56)
[2018-02-05] MEDS ORDERED: ZOFRAN ODT 4 MG ONE (16:56)
[2018-02-05] MEDS: Sodium Chloride 0.9% 1000 ML 1,000 ML IV SCH (17:03)
[2018-02-05 17:07] LABS: BASOPHIL % 0.5 % (0.0-0.4); Basophil (Absolute #) 0.03 (0-0.4); Granulocyte Absolute (ANC) 3.03 (1.4-6.9); Granulocytes % 46.2 % (36.0-66.0); Hemoglobin 15.6 gm/dl (12.5-18.0); Lymphocyte (Absolute #) 2.49 (1.0-4.6); Mean Cell Volume 99.6 fl (78-100); Mean Corpuscular Hemoglobin 33.1 pg (26-32); Mean Corpuscular Hgb Concent. 33.2 g/dl (32-36); Mean Platelet Volume 10.4 fl (6-9.5); Monocyte (Absolute #) 0.81 (0.0-1.3); Monocytes % 12.3 % (0.0-12.0); Platelet Count 202 K/mm3 (150-450); Red Blood Count 4.72 M/mm3 (4.1-5.6); Red Cell Distribution Width 13.4 % (11.5-14.0); White Blood Count 6.6 K/mm3 (4.0-10.5)
[2018-02-05 17:22] LABS: ANION GAP 13.2 MEQ/L (5-15); BLOOD UREA NITROGEN 18 mg/dL (9-20); CHLORIDE 104 mmol/L (98-107); Calcium 9.7 mg/dL (8.4-10.2); Carbon Dioxide 26 mmol/L (22-30); Glucose 90 mg/dL (74-106); SODIUM 139 mmol/L (137-145)
[2018-02-05] MEDS ORDERED: MORPHINE SULFATE 2 MG INJ IV PRN (17:37)
[2018-02-05] MEDS ORDERED: Zofran 4 MG/2 ML VIAL IV PRN (17:37)
[2018-02-06] MEDS: Sodium Chloride 0.9% 1000 ML 1,000 ML IV SCH ×3 (01:59→22:22)
[2018-02-06] MEDS ORDERED: CEFAZOLIN 2 GM-D5W BAG** 2 GM/50 ML ML IV SCH (08:30)
[2018-02-06] MEDS ORDERED: Lactated Ringers 1,000 ML IV SCH (08:30)
--- NOTE | 2018-02-06 08:39 | XRAY ---
Indication: Left groin pain/swelling. Known hernia. Multiple contiguous axial images obtained through the abdomen and pelvis without contrast as ordered. Comparison: February 01, 2018. Lung bases demonstrates stable minimal bibasilar atelectasis/scarring and minimal right base calcified pleural plaquing. No infiltrate or effusion. Heart is not enlarged. Stable small fatty left inguinal hernia. No new ventral or inguinal hernias. Noncontrasted stomach and bowel loops remaining nonobstructed with stable diverticulosis. No free fluid/air. Stable enlarged prostate gland. Remaining liver, gallbladder, pancreas, spleen, adrenal glands, kidneys, ureters, and bladder appear unremarkable for noncontrast exam. There remains mild aortoiliac calcifications without AAA. Osseous structures again demonstrates osteopenia and multilevel degenerative spondylosis. Impression: 1. Stable small fatty left inguinal hernia, colonic diverticulosis, enlarged prostate gland, and right lung base calcified pleural plaquing. 2. No new or acute intra-abdominal/pelvic abnormalities on this noncontrast exam. Comment: Preliminary interpretation was made by [facility]. No critical discrepancy. CT DI 12.62
--- NOTE | 2018-02-06 11:07 | HP ---
HISTORY OF PRESENT ILLNESS: This is an 87 year-old male with a known left inguinal hernia, this is actually his third presentation to the emergency department and second admission for this hernia. He had been pursuing an outpatient work up with Dr. Sohan Smith and who recommended scheduled outpatient surgery but the patient reports that he felt like there was swelling on both sides of his groin. His family and he felt like he should come to the emergency department to have this evaluated. He reports there was some pain. He reports a normal stool yesterday. He reports hard stools before that but was taking stool softeners. He states he saw Dr. Berman as an outpatient in the clinic and had echocardiogram and reports that Dr. Berman said he was okay for surgery. REVIEW OF SYSTEMS: No chest pain. No shortness of breath. He has pain in his left lower inguinal area. No upper abdominal pain. No lower extremity edema. No fever. No cough. No rhinorrhea. No rashes. PAST MEDICAL HISTORY: Diverticulosis and rectal bleed in 2017. He had a colonoscopy with Dr. Gallo Smith at that time. PAST SURGICAL HISTORY: Hernia repair on the right side 8 to 10 years ago. MEDICATIONS: Please see the medication reconciliation list which I reviewed. ALLERGIES: NKDA. SOCIAL HISTORY: He does not smoke or use alcohol. He is and lives with his . He is very active. He works in his yard often. FAMILY HISTORY: His mother's history is unknown. His father of colon cancer. PHYSICAL EXAMINATION: VITAL SIGNS: Temperature current 98.5F, temperature max 99.1F, heart rate 52 to 69, respiratory rate 16 to 20, blood pressure 109 to 123 over 55 to 59, weight 77.7 kg. Oxygen saturation 92 to 94% on room air. GENERAL: The patient is a pleasant man lying in bed in no acute distress. CVS: He has a regular rate and rhythm. No murmurs, gallops or rubs. CHEST: Clear to auscultation bilaterally. No crackles or wheezes. ABDOMEN: Soft, nontender, nondistended with normal bowel sounds. His left inguinal area has some mild tenderness. No distinct mass is palpated. EXTREMITIES: No clubbing, cyanosis or edema. SKIN: Warm, dry and intact. LABORATORY DATA AND TESTS: CBC and BMP are within normal limits. He had a CT scan of his abdomen and pelvis which is actually his third CT scan in the last 30 days. It again shows a left inguinal hernia. They also mention some thickening of his bladder wall on this CT scan report. EKG revealed a second degree block, Mobitz type I which he also had on the first admission and Dr. Berman felt like this was benign and will continue to follow this. ASSESSMENT AND PLAN: 1) LEFT INGUINAL HERNIA: The general surgeons were consulted from the emergency room and plan to see the patient today. He is NPO in preparation for possible surgery. 2) BLADDER WALL THICKENING ON CT SCAN: Will check UA today and consider further evaluation after that. 3) SECOND DEGREE HEART BLOCK MOBITZ TYPE I. Will try to obtain Dr. Berman's outpatient consult note. This is a benign rhythm. He has shown no signs of second degree Mobitz type II or third degree heart block. He is asymptomatic. Will continue with telemetry.
[2018-02-06 11:48] LABS: Appearance CLEAR (CLEAR); Bilirubin NEGATIVE (NEGATIVE); Blood NEGATIVE Ery/ul (0-5); Glucose NEGATIVE (NEGATIVE); Ketones NEGATIVE (NEGATIVE); Leukocyte Esterase TRACE (NEGATIVE); Nitrite NEGATIVE (NEGATIVE); Protein,Urine Dip NEGATIVE (Negative); Specific Gravity 1.015 (1.005-1.025); Urobilinogen NEGATIVE mg/dL (0-1)
--- NOTE | 2018-02-06 14:51 | CONS ---
CONSULT DATE: 02/06/2018 HISTORY: This patient is seen for Dr. Gallo Smith who was compensation supervisor this weekend. The patient came in yesterday. Dr. Gallo Smith fixed his right inguinal hernia in the past. He was seen in the hospital when Dr. Sohan Smith who was compensation supervisor for left inguinal hernia symptomatic at that time. Apparently he had some cardiac follow up and Dr. Sohan Smith scheduled him to have it repaired. He did receive cardiac clearance. He came into the hospital on Tuesday morning and was supposed to follow up in the office with Dr. Sohan Smith as he had office hours last Tuesday. However he waited until the afternoon and came in. I saw the patient for Dr. Sohan Smith and the patient was set up to have repair by Dr. Gallo Smith or Dr. Sohan Smith in the near future. Apparently he was having aches and pains and came back to the emergency department yesterday when Dr. Gallo Smith was compensation supervisor. CT scan did show fat in inguinal hernia. Apparently they decided to admit him to the hospital. PAST MEDICAL HISTORY: Diverticulosis in the past. Colonoscopy as well as right inguinal hernia repair by Dr. Gallo Smith in the past. MEDICATIONS: Vitamin C and vitamin E in the past. B-12, multivitamins, aspirin, calcium in the past. ALLERGIES: NKDA. FAMILY HISTORY: Negative in regards to this specific problem. SOCIAL HISTORY: No alcohol abuse. REVIEW OF SYSTEMS: Mainly complains of left lower aches and pains in inguinal area. He has had some hard stools but has had bowel movements. No vomiting. He has history of second degree heart block, Mobitz type II. Twelve systems reviewed pertinent for as noted above. LAB DATA AND TESTS: White blood cell count 6.6, hemoglobin 15.6, PLT count 203,000. PHYSICAL EXAMINATION: GENERAL: A chronically ill gentleman. HEENT: Sclera nonicteric. NECK: No JVD. CHEST: Equal excursion, nonlabored breathing. CVS: Regular rhythm and pulse. ABDOMEN: Soft. Tenderness in left inguinal area. EXTREMITIES: No edema. NEURO: Alert, moving extremities grossly symmetrically. No gross motor deficits noted. IMPRESSION: Chronic left inguinal hernia, some fat incarceration. The patient had recurrent aches and pains. He could not wait for Dr. Smith to fix his hernia before he got admitted to the hospital. Dr. Smith ask that I see the patient today as he was unable to take care of the patient yesterday. The patient was seen by Dr. Sohan Smith who originally saw the patient for his hernia. Dr. Gallo Smith was compensation supervisor yesterday. Symptomatic left inguinal hernia. I feel he will benefit from repair. 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 He understands hernia repair designed to fix the hernia but does not necessarily fix all of his aches and pains. General risk of anesthesia, deep venous thrombosis, pulmonary embolism, pneumonia but not limited to, risk of cardiopulmonary event given his comorbidities. He is agreeable to the procedure. If the OR keeps the flow moving will see about doing later today as the patient does not feel he can wait for Dr. Smith to fix it even later in the week. Again, this patient is seen for Dr. Sohan Smith saw this patient initially when he was compensation supervisor and Dr. Gallo Smith who was compensation supervisor yesterday when the patient came in.
[2018-02-06] MEDS ORDERED: Lactated Ringers 500 ML IV ONE (15:31)
[2018-02-06] MEDS ORDERED: Lactated Ringers 1,000 ML IV ONE (15:31)
[2018-02-06] MEDS ORDERED: Sensorcaine 0.25% 10 ML ONE (15:31)
[2018-02-06] MEDS ORDERED: DIPRIVAN 200 MG/20 ML IV ONE (17:37)
[2018-02-06] MEDS ORDERED: Versed 2 MG/2 ML Injection IV ONE (17:37)
[2018-02-06] MEDS: MORPHINE SULFATE 2 MG INJ IV PRN ×3 (19:01→23:13)
[2018-02-06] MEDS ORDERED: DEXTROSE 5% -NACL 0.9% 1000 ML + KCl 20 MEQ 1,000 ML IV SCH (19:30)
[2018-02-06] MEDS: NORCO 5/325 MG PO PRN (19:54)
[2018-02-06] MEDS ORDERED: D5W/0.45NS W/ 20mEq KCl 1000 ML 1,000 ML IV SCH (21:30)
[2018-02-07] MEDS: NORCO 5/325 MG PO PRN ×3 (03:42→14:01)
[2018-02-07] MEDS ORDERED: MEDICATION INTERVENTION MC SCH (07:15)
--- NOTE | 2018-02-07 08:05 | OP ---
SURGERY DATE/TIME: 02/06/2018 1530 PREOPERATIVE DIAGNOSIS: Chronically incarcerated left inguinal hernia. POSTOPERATIVE DIAGNOSIS: Chronically incarcerated left inguinal hernia. PROCEDURE: Repair incarcerated left inguinal hernia with mesh. SURGEON: Dr. Boubacar Freeman. ANESTHESIA: Spinal, local, 0.25% Marcaine. ESTIMATED BLOOD LOSS: Minimal. INDICATIONS: As noted above. Risks and benefits explained in detail and not limited to and consent obtained. DESCRIPTION OF PROCEDURE AND FINDINGS: The patient is taken to the operating room. Regional anesthesia induced. He was prepped and draped in usual sterile fashion. After official time out and no disagreement with planned procedure, a transverse incision made left inguinal area. Dissection carried down through large amount of subcu fat to the Vijay fascia. Small, little inferior epigastric veins were clamped, divided and ligated with Vicryl ties this was secured down to Vijay fascia. External oblique split in the direction of its fibers towards the external ring. The visible branches of ilioinguinal and iliohypogastric nerves were protected as well as possible. Cord gently mobilized up off the pubic tubercle with a [place]org drain. I noted that he had incarcerated direct hernia component with large amount of fat in this area this is away from the cord structures, reduced back down into the abdomen. Some running 0 PDS was then bringing the transversalis fascia in the internal oblique conjoin area back down towards the inguinal ligament reducing this direct hernia state with running 0 PDS up to a more normal size internal ring in a tension free manner. From the lateral aspect of the cord there is an isolated cord lipoma from the cord vessels and cord structures that were high ligated with 3-0 Vicryl suture ligature and passed off. Once this direct hernia component and floor was repaired with 0 PDS the new internal ring was felt to be not too tight. It was felt to be more normal in size. It was felt he would benefit from mesh repair. A 2x4 piece of mesh cut to appropriate dimensions secured down the fascia overlying the pubic tubercle with 0 Prolene run along Vamsi's ligament along the shelving portion of the inguinal ligament lateral past the internal ring and shelving portion with 0 Prolene. 0 Prolene used to transfix to the rectus fascia medially in interrupted fashion. 0 Vicryl was used to transfix the aponeurosis internal oblique superiorly avoiding the visible branch of iliohypogastric nerves in a tension free manner. Tails of the mesh tacked together laterally with 0 Prolene. There was one patulous part of the medial part of the ring that was secured with 0 PDS. The internal ring was felt to be not too tight. The mesh is nice and flat in tension-free manner. Tails are lying nice and flat laterally on the external oblique at this point. Irrigation accomplished. Good hemostasis noted. External oblique closed with 0 Vicryl. Vijay closed with 3-0 Vicryl. Subcu closed with 3-0 Vicryl. Skin closed with 4-0 Vicryl. 0.25% Marcaine local had been injected along the skin incision back towards the origin of the inguinal area back towards the anterior iliac spine. The patient tolerated the procedure well. There were no immediate complications. Findings discussed with the family out in the waiting area. Again, this patient was seen for Dr. Gallo Smith who was consulted yesterday, Dr. Sohan Smith who had seen the patient as an inpatient in the hospital all for the same problem originally.
--- NOTE | 2018-02-07 08:34 | PCM.NOTE ---
Date and Time: 02/07/18830 Subjective Assessment: Patient reports he urinated a lot last night and was getting up to the bathroom with health. His says she will need help from his children at home. He has eaten all of his breakfast. He took some pain medication this AM. - Review of Systems Constitutional: No Symptoms Eyes: No Symptoms Ears, Nose, & Throat: No Symptoms Respiratory: No Symptoms Cardiac: No Symptoms Abdominal/Gastrointestinal: No Symptoms Genitourinary Symptoms: No Symptoms Objective Exam General Appearance: no apparent distress, other (sitting up in chair in NAD) Neurologic Exam: alert, cooperative, normal mood/affect Skin Exam: normal color, warm, dry, No rash Respiratory Exam: normal breath sounds Cardiovascular Exam: regular rate/rhythm, normal heart sounds, No murmur, No friction rub, No gallop Gastrointestinal/Abdomen Exam: soft, normal bowel sounds, No tenderness, No distention, No mass Extremity Exam: other (no c/c/e; left groin bandaged) OBJECTIVE DATA Vital Signs: Vital Signs - 24 hr Temp Pulse Resp BP Pulse Ox 02/07/18 07:13 96 02/07/18 07:01 97.8 F 83 20 168/74 95 02/07/18 03:49 97.4 F 83 18 179/92 94 L 02/07/18 00:00 97.7 F 86 18 171/83 93 L 02/06/18 21:53 95 02/06/18 21:25 98.2 F 87 16 174/85 94 L 02/06/18 20:25 97.4 F 84 18 183/92 93 L 02/06/18 19:25 97.4 F 77 16 184/83 95 02/06/18 18:55 97.3 F 72 18 182/86 96 02/06/18 18:25 97.3 F 71 16 163/87 71 L 02/06/18 18:10 97.3 F 69 16 178/81 94 L 02/06/18 17:55 97.4 F 64 16 171/82 95 02/06/18 15:05 98.5 F 73 18 140/78 94 L 02/06/18 12:39 98.5 F 73 18 140/78 94 L 02/06/18 11:10 98.5 F 73 18 140/78 94 L Pain Assessment - Last Documented Pain Intensity 5 Pain Scale Used 0-10 Pain Scale Intake and Output: Intake & Output 02/05/18 02/06/18 02/07/18 02/08/18 06:59 06:59 06:59 06:59 Intake Total 962 2485 Balance 962 2485 Weight 77.7 kg 77.7 kg Lab Results: Lab Results-Last 24 Hours 02/06/18 Range/Units 10:49 Urine Color YELLOW (YELLOW) Urine Appearance CLEAR (CLEAR) Urine pH 8.0 (5-6) Ur Specific [place] 1.015 (1.005-1.025) Urine Protein NEGATIVE (Negative) Urine Ketones NEGATIVE (NEGATIVE) Urine Blood NEGATIVE (0-5) Raj/ul Urine Nitrite NEGATIVE (NEGATIVE) Urine Bilirubin NEGATIVE (NEGATIVE) Urine Urobilinogen NEGATIVE (0-1) mg/dL Ur Leukocyte Esterase TRACE (NEGATIVE) Urine WBC (Auto) 0-2 (0-5) /HPF Urine RBC (Auto) NONE (0-2) /HPF Urine Bacteria (Auto) NONE (NEGATIVE) /HPF Urine Mucus (Auto) SLIGHT (NEGATIVE) /HPF Urine Glucose NEGATIVE (NEGATIVE) mg/dL Radiology Exams: Radiology Procedures Category Date Time Status ABDOMEN AND PELVIS W/0 CONTRAS [CT] Routine Exams 02/05/18 18:42 Completed Assessment/Plan (1) Left inguinal hernia Current Visit: Yes Status: Acute Assessment & Plan: s/p surgery; management per surgeons. Code(s): K40.90 - UNIL INGUINAL HERNIA, W/O OBST OR GANGR, NOT SPCF RECUR (2) Second degree AV block, Mobitz type I Current Visit: Yes Status: Acute Assessment & Plan: following with paper final inspector. Code(s): I44.1 - ATRIOVENTRICULAR BLOCK, SECOND DEGREE (3) Bladder wall thickening Current Visit: Yes Status: Acute Assessment & Plan: Read by virtual radiologist but not our radiologist. UA did not show any blood. Most likely incidental finding. Code(s): N32.89 - OTHER SPECIFIED DISORDERS OF BLADDER
[2018-02-07] MEDS ORDERED: NON-FORMULARY ITEM (Calcium Carbonate [Calcium] 600 MG) PO SCH (10:00)
[2018-02-07] MEDS ORDERED: FOLIC ACID PO SCH (10:00)
[2018-02-07] MEDS ORDERED: FOLATE 1 MG PO SCH (10:00)
[2018-02-07] MEDS ORDERED: Vitamin B-12 500 MCG PO SCH (10:00)
[2018-02-07] MEDS ORDERED: Vitamin C 500 MG PO SCH (10:00)
[2018-02-07] MEDS ORDERED: NON-FORMULARY ITEM (Multivitamin W-Minerals/Lutein [Centrum Silver Tablet] 1 EACH) PO SCH (10:00)
[2018-02-07] MEDS ORDERED: NON-FORMULARY ITEM (Ascorbate Calcium [Vitamin C] 500 MG) PO SCH (10:00)
[2018-02-07] MEDS ORDERED: [UNRECOGNIZED DRUG - REMARK] PO SCH (10:00)
[2018-02-07] MEDS ORDERED: THERAGRAN MULTIVITAMIN PO SCH (10:00)
[2018-02-07] MEDS ORDERED: CYANOCOBALAMIN PO SCH (10:00)
[2018-02-07] MEDS ORDERED: Calcium 500MG W/Vit D Tablet PO SCH (10:00)
[2018-02-07] MEDS ORDERED: BABY ASPIRIN 81 MG CHEW PO SCH (10:00)
[2018-02-07] MEDS ORDERED: ECOTRIN 81 MG PO SCH (10:00)
[2018-02-07] MEDS ORDERED: Vitamin E 400 UNIT SOFTGEL PO SCH (10:00)
[2018-02-07 15:28] VITALS: BP 140/78; PULSE 80; O2SAT 96
== END 2018-02-07 16:10 | disposition home or self-care (01) ==
LOC: ED 15:58 → MED SURG 17:36
PROVIDERS: ADMIT Internal Medicine; ATTEND Internal Medicine
DX: K40.30 Unilateral inguinal hernia, with obstruction, without gangrene, not specified as recurrent (principal); Z80.0 Family history of malignant neoplasm of digestive organs; I44.1 Atrioventricular block, second degree
CPT/HCPCS: 00830; 36000; 36415; 49507; 74176; 80048; 81001; 85025; 93005; 93268; 94762; 96374; 99100; 99285; G0378; J0690; J2250; J2270; J2704; Q0162; A9270-GY